=== PATIENT | female | born 1935 | race Caucasian/White ===

== ENCOUNTER 2020-05-22 02:26 | Inpatient (IN) | payer MEDICARE, OTHER ==
[~2020-05-22] VITALS: Ht 156.2 cm; Wt 83.2 kg
[2020-05-22 03:17] LABS: BASO # 0.1 x10^3/uL (0.0-0.2); BASO % 1 % (0-3); EOS # 0.1 x10^3/uL (0.0-0.7); EOS % 2 % (0-3); HEMATOCRIT 39.1 % (36.0-47.0); HEMOGLOBIN 13.3 g/dL (12.0-15.5); LYMPH # 0.7 x10^3/uL (1.0-4.8); LYMPH % 15 % (24-48); MEAN CORPUSCULAR HEMOGLOBIN 31 pg (25-35); MEAN CORPUSCULAR HGB CONC 34 g/dL (31-37); MEAN CORPUSCULAR VOLUME 92 fL (79-100); MONO # 0.5 x10^3/uL (0.0-1.1); MONO % 12 % (0-9); NEUT % 69 % (31-73); PLATELET COUNT 98 x10^3/uL (140-400); RED BLOOD COUNT 4.24 x10^6/uL (3.50-5.40); RED CELL DISTRIBUTION WIDTH 14.3 % (11.5-14.5); WHITE BLOOD COUNT 4.3 x10^3/uL (4.0-11.0)
[2020-05-22 03:24] LABS: CALCIUM 8.9 mg/dL (8.5-10.1); CREATININE 1.4 mg/dL (0.6-1.0); GFR 35.7; POTASSIUM 3.5 mmol/L (3.5-5.1)
--- NOTE | 2020-05-22 03:24 | PHYS DOC ---
Past Medical History Past Medical History: CAD, High Cholesterol, Hypertension, Hypothyroid Additional Past Medical Histor: Colon CA Past Surgical History: Appendectomy, Cancer Surgery, Hysterectomy Additional Past Surgical Histo: colon CA Smoking Status: Never Smoker Alcohol Use: None General Adult EDM: Chief Complaint: CHEST PAIN HPI: HPI: Patient is a 85 year old female with past medical history of hypertension, hyperlipidemia, hypothyroid presents with the chief complaint of left sided chest pain. Patient states pain woke her up @ 0000hrs. Pain located left chest and described as a discomfort. She states felt like indigestion. Denies any associated nausea vomiting or diaphoresis. Pain resolved shortly after arrival to ER. Review of Systems: Review of Systems: Constitutional: Denies fever or chills. [] Eyes: Denies change in visual acuity. [] HENT: Denies nasal congestion or sore throat. [] Respiratory: Denies cough or shortness of breath. [] Cardiovascular: Denies chest pain or edema. [] GI: Denies abdominal pain, nausea, vomiting, bloody stools or diarrhea. [] : Denies dysuria. [] Musculoskeletal: Denies back pain or joint pain. [] Integument: Denies rash. [] Neurologic: Denies headache, focal weakness or sensory changes. [] Endocrine: Denies polyuria or polydipsia. [] Lymphatic: Denies swollen glands. [] Psychiatric: Denies depression or anxiety. [] Heart Score: HEART Score for Chest Pain: HEART Score for Chest Pain Response (Comments) Value History Moderately Suspicious 1 ECG Nonspecific Repolarizatio 1 Age > 65 2 Risk Factors >3 Risk Factors or Hx CAD 2 Troponin < Normal Limit 0 Total 6 Risk Factors: Risk Factors: DM, Current or recent (<one month) smoker, HTN, HLP, family history of CAD, obesity. Risk Scores: Score 0 - 3: 2.5% MACE over next 6 weeks - Discharge Home Score 4 - 6: 20.3% MACE over next 6 weeks - Admit for Clinical Observation Score 7 - 10: 72.7% MACE over next 6 weeks - Early Invasive Strategies Allergies: Allergies: Allergies Coded Allergies Type Severity Reaction Last Updated Verified No Known Drug Allergies 05/22/20 No Physical Exam: PE: Constitutional: Well developed, well nourished, no acute distress, non-toxic appearance. [] HENT: Normocephalic, atraumatic, bilateral external ears normal, oropharynx moist, no oral exudates, nose normal. [] Eyes: PERRLA, EOMI, conjunctiva normal, no discharge. [] Neck: Normal range of motion, no tenderness, supple, no stridor. [] Cardiovascular:bradycardia Lungs & Thorax: Bilateral breath sounds clear to auscultation [] Abdomen: Bowel sounds normal, soft, no tenderness, no masses, no pulsatile masses. [] Skin: Warm, dry, no erythema, no rash. [] Back: No tenderness, no CVA tenderness. [] Extremities: No tenderness, no cyanosis, no clubbing, ROM intact, no edema. [] Neurologic: Alert and oriented X 3, normal motor function, normal sensory function, no focal deficits noted. [] Psychologic: Affect normal, judgement normal, mood normal. [] Current Patient Data: Vital Signs: Vital Signs Date Time Temp Pulse Resp B/P (MAP) Pulse Ox O2 Delivery O2 Flow Rate FiO2 05/22/20 02:39 97.7 56 18 140/64 (89) 96 Room Air 97.7 EKG: EKG: EKG 0230hrs rate 49 twave inversion 1, AVL V3, V4 EKG taken at 343 hours. rate 63 No discernible P wave wide QRS T wave inversion V3 V4 V5 [] Radiology/Procedures: Radiology/Procedures: [] Course & Med Decision Making: Course & Med Decision Making Pertinent Labs and Imaging studies reviewed. (See chart for details) [] Dragon Disclaimer: Dragon Disclaimer: This electronic medical record was generated, in whole or in part, using a voice recognition dictation system. Departure Departure Impression: Primary Impression: Chest pain Disposition: ADMITTED INPATIENT Condition: STABLE Referrals: TIM LANGE (PCP) Justicifation of Admission Dx: Justifications for Admission: Justification of Admission Dx: Yes CHF: Cardiac Arrhythmias Comments: Chest Pain ERWIN BERRIOS I DO May 22, 2020 03:24
[2020-05-22 03:30] LABS: ALBUMIN 3.4 g/dL (3.4-5.0); ALBUMIN/GLOBULIN RATIO 1.2 (1.0-1.7); TOTAL BILIRUBIN 0.7 mg/dL (0.2-1.0); TOTAL PROTEIN 6.3 g/dL (6.4-8.2)
--- NOTE | 2020-05-22 04:04 | EKG ---
[facility] [address] [place] [address] Test Date: 2020-05-22 Test Time: 03:43:22 Pat Name: DELIA GLEASON Department: Room: Gender: F Overnight Houseperson: : 1935 Requested By: ERWIN BERRIOS Order Number: [id number] Reading MD: Measurements Intervals [place] Rate: 63 P: MO: QRS: 120 QRSD: 70 T: 166 QT: 510 QTc: 526 Interpretive Statements IRREGULAR RHYTHM, NO P-WAVE FOUND ABNORMAL RIGHT AXIS DEVIATION LOW LIMB LEAD VOLTAGE QRS(T) CONTOUR ABNORMALITY CONSISTENT WITH ANTEROSEPTAL INFARCT AGE UNDETERMINED ST & T ABNORMALITY, CONSIDER ANTERIOR ISCHEMIA OR LEFT VENTRICULAR STRAIN LATERAL ISCHEMIA OR LEFT VENTRICULAR STRAIN ABNORMAL ECG RI6.02
[2020-05-22] MEDS ORDERED: ONDANSETRON PF 4 MG/2 ML VIAL. IV PRN (04:30)
[2020-05-22] MEDS ORDERED: MORPHINE SULFATE 2 MG/ML VIAL. IV PRN (04:30)
--- NOTE | 2020-05-22 05:10 | RAD ---
CHEST AP ONLY Clinical Indication: Reason: chest pain Comparison: None. Findings: Median sternotomy wires and changes of CABG and valve prosthesis. Atherosclerotic aortic arch. Cardiac size is upper limits of normal. Lungs are clear. There is no pneumothorax. No pleural effusion is appreciated. No acute bone abnormality. IMPRESSION: No acute cardiopulmonary process. Electronically signed by: Mike Abraham MD (05/22/2020 5:06 AM) [facility] HOSPITALFlaca
[2020-05-22 05:15] VITALS: BP 139/69
--- NOTE | 2020-05-22 06:40 | NUR ---
Pt arrived to room 208 per cart, pt assisted to bed , call light placed in reach poc explained assessment completed vss pt denied chest pain during this time will resume care and continue to monitor pt.
[2020-05-22 07:00] VITALS: BP 137/74
--- NOTE | 2020-05-22 09:07 | PDOC2 ---
PALLAVI HU EMPLOYMENT AND CLAIMS AIDE 05/22/20 0906: CARDIAC CONSULT DATE OF CONSULT Date of Consult DATE: 05/22/20 TIME: 08:57 REASON FOR CONSULT Reason for Consult: Chest pain REFERRING PHYSICIAN Referring Physician: Nancy SOURCE Source: Chart review, Patient HISTORY OF PRESENT ILLNESS HISTORY OF PRESENT ILLNESS This is a pleasant 85 yo female admitted for complains of chest pain. Reports that this is around her left breast area and felt like pressure last night and approximately lasted for about 2 hours and actually resolved upon admission in ED and no further recurrence. Reports 5-7 in 0-10 scale nonradiating and hard for her to belch. No complains of SOA, diaphoresis but felt some palpitations. She did not check her HR at that time. No complains of SERRANO and no further chest pain. Denies any changes to her functional capacity. She sees an outpt carbon furnace operator and she could not remember who but the daughter mentioned Dr. Childers but not sure and does not known where his office is at. She has alzheimers dementia but appears that her cognitive function is at an early phase. Her last stress test that she can remember was 2017 and had mechanical AVR in 1995 but no coronary bypass that she could remember. No complains of frequent falls, passing out or sustained dizziness. PAST MEDICAL HISTORY Cardiovascular: HTN, Hyperlipidemia, Valve insufficiency CENTRAL NERVOUS SYSTEM: Dementia (alzheimers) Heme/Onc: Cancer (colon) Psych: Depression Musculoskeletal: Osteoarthritis Endocrine: Hypothyroidism PAST SURGICAL HISTORY Past Surgical History: Hysterectomy, Other (open AVR) FAMILY HISTORY Family History: Heart Disease SOCIAL HISTORY Smoke: Quit (remotely) ALCOHOL: none Drugs: None Lives: with Family (daughter) ALLERGIES ALLERGIES: Coded Allergies: No Known Drug Allergies (Unverified , 05/22/20) ROS Review of System 14 point ROS evaluated with pertinent positives noted per HPI PHYSICAL EXAM General: Alert, Oriented X3, Cooperative, No acute distress HEENT: Atraumatic, Mucous membr. moist/pink Lungs: Clear to auscultation, Normal air movement Heart: Regular rate, Normal S1, Normal S2 Abdomen: Soft, No tenderness Extremities: No cyanosis, Other (trace LE) Skin: No breakdown, No significant lesion Neuro: Normal speech, Sensation intact Psych/Mental Status: Mental status NL, Mood NL MUSCULOSKELETAL: Osteoarthritic changes both hands VITALS/I&O VITALS/I&O: Vital Signs Date Time Temp Pulse Resp B/P (MAP) Pulse Ox O2 Delivery O2 Flow Rate FiO2 05/22/20 07:00 97.8 53 20 137/74 (95) 100 Room Air 97.8 I & O 05/21/20 05/21/20 05/22/20 15:00 23:00 07:00 Intake Total 0 ml Balance 0 ml LABS Lab: Laboratory Tests Test 05/22/20 03:07 05/22/20 08:05 White Blood Count 4.3 x10^3/uL (4.0-11.0) Red Blood Count 4.24 x10^6/uL (3.50-5.40) Hemoglobin 13.3 g/dL (12.0-15.5) Hematocrit 39.1 % (36.0-47.0) Mean Corpuscular Volume 92 fL (79-100) Mean Corpuscular Hemoglobin 31 pg (25-35) Mean Corpuscular Hemoglobin Concent 34 g/dL (31-37) Red Cell Distribution Width 14.3 % (11.5-14.5) Platelet Count 98 x10^3/uL (140-400) L Neutrophils (%) (Auto) 69 % (31-73) Lymphocytes (%) (Auto) 15 % (24-48) L Monocytes (%) (Auto) 12 % (0-9) H Eosinophils (%) (Auto) 2 % (0-3) Basophils (%) (Auto) 1 % (0-3) Neutrophils # (Auto) 3.0 x10^3/uL (1.8-7.7) Lymphocytes # (Auto) 0.7 x10^3/uL (1.0-4.8) L Monocytes # (Auto) 0.5 x10^3/uL (0.0-1.1) Eosinophils # (Auto) 0.1 x10^3/uL (0.0-0.7) Basophils # (Auto) 0.1 x10^3/uL (0.0-0.2) Sodium Level 145 mmol/L (136-145) Potassium Level 3.5 mmol/L (3.5-5.1) Chloride Level 109 mmol/L (98-107) H Carbon Dioxide Level 25 mmol/L (21-32) Anion Gap 11 (6-14) Blood Urea Nitrogen 19 mg/dL (7-20) Creatinine 1.4 mg/dL (0.6-1.0) H Estimated GFR (Cockcroft-Gault) 35.7 BUN/Creatinine Ratio 14 (6-20) Glucose Level 108 mg/dL (70-99) H Calcium Level 8.9 mg/dL (8.5-10.1) Total Bilirubin 0.7 mg/dL (0.2-1.0) Aspartate Amino Transferase (AST) 17 U/L (15-37) Alanine Aminotransferase (ALT) 16 U/L (14-59) Alkaline Phosphatase 68 U/L (46-116) Troponin I Quantitative 0.028 ng/mL (0.000-0.055) 0.052 ng/mL (0.000-0.055) Total Protein 6.3 g/dL (6.4-8.2) L Albumin 3.4 g/dL (3.4-5.0) Albumin/Globulin Ratio 1.2 (1.0-1.7) Laboratory Tests 05/22/20 03:07 Laboratory Tests 05/22/20 03:07 ASSESSMENT/PLAN ASSESSMENT/PLAN 1. Atypical chest pain: abnormal EKG no prior for comparison. Suspect MSK. this is reproducible to her left chest 2. Open AVR: no reported coronary bypass 3. Chronic warfarin therapy: INR at 3 4. Alzheimers dementia 5. Prolonged QTc: 544 6. HTN: controlled 7. HLP 8. Thrombocytopenia: PLT at 98. per PCP 9. Asymptomatic SB with RBBB/long first degree AV block: no syncope/presynco pe/pauses or high grad block. Lowest upper 40s Recommendations TTE Continue Coumadin with INR 2-3 goal Given her her significant cardiac risk factors and cardiac hx, would consider for outpt stress test. Follow up with her primary outpt carbon furnace operator. Continue with current regimen. I do not recommend continuing the aricept. Caution with QT prolonging agents. If palpitations continues to occur the MCOT would be ideal. MILANA MACIAS MD 05/23/20 0905: CARDIAC CONSULT ASSESSMENT/PLAN ASSESSMENT/PLAN Patient seen and examined 05/22/20. Agree with PRINCIPAL CLERK's assessment and plan. Chest pain with atypical features, reproducible to palpation most probably musculoskeletal. Myocardial infarction has been ruled out. 2D echo showed normal LV systolic function. Mechanical AVR, seems to be functioning well on echo. Continue Coumadin. Agree with holding Aricept secondary to prolonged QTc interval. Plan outpatient ischemic evaluation with primary carbon furnace operator. PALLAVI HU APRN May 22, 2020 09:06 MILANA MACIAS MD May 23, 2020 09:05
--- NOTE | 2020-05-22 09:27 | EKG ---
[facility] [address] [place] [address] Test Date: 2020-05-22 Test Time: 09:22:46 Pat Name: DELIA GLEASON Department: Room: 208 1 Gender: F Excellence Manager: RISHABH : 1935 Requested By: PALLAVI HU Order Number: [id number] Reading MD: Measurements Intervals [place] Rate: 51 P: -69 OK: 228 QRS: 120 QRSD: 126 T: 165 QT: 588 QTc: 544 Interpretive Statements SINUS RHYTHM PROLONGED OK INTERVAL ABNORMAL RIGHT AXIS DEVIATION RIGHT BUNDLE BRANCH BLOCK RVH WITH REPOLARIZATION ABNORMALITY ABNORMAL ECG RI6.02 Compared to ECG 05/22/2020 03:43:22 First degree AV block now present Right bundle-branch block now present Right ventricular hypertrophy now present Early repolarization now present Myocardial infarct finding no longer present T-wave abnormality no longer present Possible ischemia no longer present
--- NOTE | 2020-05-22 09:40 | PDOC1 ---
History and Physical Date of Admission Date of Admission 05/22/2020 Identification/Chief Complaint Chief Complaint My chest hurts Source Source: Chart review, Patient History of Present Illness History of Present Illness Patient is an 85-year-old female with past medical history of aortic valve replacement on chronic Coumadin therapy who was in her usual state of health until yesterday evening when apparently for dinner she had taquitos. Patient woke up in the middle of the night approximately midnight with what she felt was either a heart attack or heartburn. She described the discomfort as sharp sensation over the precordial area with no radiation to the carotids the arm or the jaw. The patient denied any sensation of impending doom no nausea vomiting or diaphoresis was associated with the discomfort. The patient has not had recent angina type of symptoms she does not remember last time that she saw her creative developer but overall she said that her creative developer inform her she was doing quite well. The patient has not had any changes to her current therapies and is hoping to be going home later in the day. She feels well and there is no EKG abnormalities noted on telemetry. Reassurance is provided plan of care explained in detail Past Medical History Cardiovascular: HTN, Hyperlipidemia CENTRAL NERVOUS SYSTEM: Dementia (alzheimers) Heme/Onc: Cancer (colon) Psych: Depression Endocrine: Hypothyroidism Past Surgical History Past Surgical History: Hysterectomy Current Problem List Problem List Problems Medical Problems: (1) Chest pain Status: Acute Current Medications Current Medications Current Medications Medications (Trade) Dose Ordered Sig/Roxy Start Time Stop Time Status Last Admin Dose Admin Morphine Sulfate (Morphine Sulfate) 2 mg PRN Q2HR PRN 05/22/20 04:30 05/23/20 04:29 Ondansetron HCl (Zofran) 4 mg PRN Q8HRS PRN 05/22/20 04:30 05/23/20 04:29 Allergies Allergies Allergies Coded Allergies Type Severity Reaction Last Updated Verified No Known Drug Allergies 05/22/20 No ROS Review of System CONSTITUTIONAL: No fever or chills EYES: No recent changes SKIN: No rash or itching CARDIOVASCULAR: No chest pain, syncope, palpitations, or edema RESPIRATORY: No SOB or cough GASTROINTESTINAL: No nausea, vomiting or abdominal pain NEUROLOGICAL: No headaches or weakness ENDOCRINE: No cold or heat intolerance GENITOURINARY: No urgency or frequency of urination MUSCULOSKELETAL: No back pain or joint pain LYMPHATICS: No enlarged lymph nodes PSYCHIATRIC: No anxiety or depression Physical Exam Physical Exam GEN.: No apparent distress. Alert and oriented. HEENT: Head is normocephalic, atraumatic NECK: Supple. LUNGS: Clear to auscultation. HEART: RRR, S1, S2 present. Audible click peripheral pulses intact ABDOMEN: Soft, nontender. Positive bowel sounds. EXTREMITIES: Without any cyanosis. NEUROLOGIC: Normal speech, normal tone PSYCHIATRIC: Normal affect, normal mood. SKIN: No ulcerations Vitals Vitals Vital Signs Date Time Temp Pulse Resp B/P (MAP) Pulse Ox O2 Delivery O2 Flow Rate FiO2 05/22/20 07:00 97.8 53 20 137/74 (95) 100 Room Air 97.8 Labs Labs Laboratory Tests Test 05/22/20 03:07 05/22/20 08:05 White Blood Count 4.3 x10^3/uL (4.0-11.0) Red Blood Count 4.24 x10^6/uL (3.50-5.40) Hemoglobin 13.3 g/dL (12.0-15.5) Hematocrit 39.1 % (36.0-47.0) Mean Corpuscular Volume 92 fL (79-100) Mean Corpuscular Hemoglobin 31 pg (25-35) Mean Corpuscular Hemoglobin Concent 34 g/dL (31-37) Red Cell Distribution Width 14.3 % (11.5-14.5) Platelet Count 98 x10^3/uL (140-400) Neutrophils (%) (Auto) 69 % (31-73) Lymphocytes (%) (Auto) 15 % (24-48) Monocytes (%) (Auto) 12 % (0-9) Eosinophils (%) (Auto) 2 % (0-3) Basophils (%) (Auto) 1 % (0-3) Neutrophils # (Auto) 3.0 x10^3/uL (1.8-7.7) Lymphocytes # (Auto) 0.7 x10^3/uL (1.0-4.8) Monocytes # (Auto) 0.5 x10^3/uL (0.0-1.1) Eosinophils # (Auto) 0.1 x10^3/uL (0.0-0.7) Basophils # (Auto) 0.1 x10^3/uL (0.0-0.2) Sodium Level 145 mmol/L (136-145) Potassium Level 3.5 mmol/L (3.5-5.1) Chloride Level 109 mmol/L (98-107) Carbon Dioxide Level 25 mmol/L (21-32) Anion Gap 11 (6-14) Blood Urea Nitrogen 19 mg/dL (7-20) Creatinine 1.4 mg/dL (0.6-1.0) Estimated GFR (Cockcroft-Gault) 35.7 BUN/Creatinine Ratio 14 (6-20) Glucose Level 108 mg/dL (70-99) Calcium Level 8.9 mg/dL (8.5-10.1) Total Bilirubin 0.7 mg/dL (0.2-1.0) Aspartate Amino Transf (AST/SGOT) 17 U/L (15-37) Alanine Aminotransferase (ALT/SGPT) 16 U/L (14-59) Alkaline Phosphatase 68 U/L (46-116) Troponin I Quantitative 0.028 ng/mL (0.000-0.055) 0.052 ng/mL (0.000-0.055) Total Protein 6.3 g/dL (6.4-8.2) Albumin 3.4 g/dL (3.4-5.0) Albumin/Globulin Ratio 1.2 (1.0-1.7) Thyroid Stimulating Hormone (TSH) 2.187 uIU/mL (0.358-3.74) Laboratory Tests Test 05/22/20 03:07 05/22/20 08:05 White Blood Count 4.3 x10^3/uL (4.0-11.0) Red Blood Count 4.24 x10^6/uL (3.50-5.40) Hemoglobin 13.3 g/dL (12.0-15.5) Hematocrit 39.1 % (36.0-47.0) Mean Corpuscular Volume 92 fL (79-100) Mean Corpuscular Hemoglobin 31 pg (25-35) Mean Corpuscular Hemoglobin Concent 34 g/dL (31-37) Red Cell Distribution Width 14.3 % (11.5-14.5) Platelet Count 98 x10^3/uL (140-400) Neutrophils (%) (Auto) 69 % (31-73) Lymphocytes (%) (Auto) 15 % (24-48) Monocytes (%) (Auto) 12 % (0-9) Eosinophils (%) (Auto) 2 % (0-3) Basophils (%) (Auto) 1 % (0-3) Neutrophils # (Auto) 3.0 x10^3/uL (1.8-7.7) Lymphocytes # (Auto) 0.7 x10^3/uL (1.0-4.8) Monocytes # (Auto) 0.5 x10^3/uL (0.0-1.1) Eosinophils # (Auto) 0.1 x10^3/uL (0.0-0.7) Basophils # (Auto) 0.1 x10^3/uL (0.0-0.2) Sodium Level 145 mmol/L (136-145) Potassium Level 3.5 mmol/L (3.5-5.1) Chloride Level 109 mmol/L (98-107) Carbon Dioxide Level 25 mmol/L (21-32) Anion Gap 11 (6-14) Blood Urea Nitrogen 19 mg/dL (7-20) Creatinine 1.4 mg/dL (0.6-1.0) Estimated GFR (Cockcroft-Gault) 35.7 BUN/Creatinine Ratio 14 (6-20) Glucose Level 108 mg/dL (70-99) Calcium Level 8.9 mg/dL (8.5-10.1) Total Bilirubin 0.7 mg/dL (0.2-1.0) Aspartate Amino Transf (AST/SGOT) 17 U/L (15-37) Alanine Aminotransferase (ALT/SGPT) 16 U/L (14-59) Alkaline Phosphatase 68 U/L (46-116) Troponin I Quantitative 0.028 ng/mL (0.000-0.055) 0.052 ng/mL (0.000-0.055) Total Protein 6.3 g/dL (6.4-8.2) Albumin 3.4 g/dL (3.4-5.0) Albumin/Globulin Ratio 1.2 (1.0-1.7) Thyroid Stimulating Hormone (TSH) 2.187 uIU/mL (0.358-3.74) VTE Prophylaxis Ordered VTE Prophylaxis Devices: No VTE Pharmacological Prophylaxi: Yes Assessment/Plan Assessment/Plan Chest pain rule out ACS History of aortic valve replacement, mechanical Chronic Coumadin therapy Essential hypertension Dyslipidemia Chronic kidney disease stage II Thrombocytopenia Plan Follow trend of troponin Cardiology consultation has been requested Check PT/INR Further recommendations based on the clinical course Resume home medication Hopefully discharge later if no further intervention deemed necessary from the cardiological standpoint of view DVT prophylaxis patient is on full anticoagulation with Coumadin Justifications for Admission Other Justification ALEKSANDRA MENDEZ MD May 22, 2020 09:40
[2020-05-22 09:50] LABS: PROTHROMBIN TIME PATIENT 31.6 SEC (11.7-14.0)
[2020-05-22 10:17] LABS: CHOLESTEROL/HDL RATIO 2.6
[2020-05-22] MEDS ORDERED: MEMA10TA PO (10:19)
[2020-05-22] MEDS ORDERED: ATOR40TA59 PO (10:19)
[2020-05-22] MEDS ORDERED: WARF7.5T45 PO (10:19)
[2020-05-22] MEDS ORDERED: TELM40TA PO (10:19)
[2020-05-22] MEDS ORDERED: FEXO180T16 PO (10:19)
[2020-05-22] MEDS ORDERED: AMLO5TAB10 PO (10:19)
[2020-05-22] MEDS ORDERED: ZOLP5TAB5 PO (10:19)
[2020-05-22] MEDS ORDERED: HYDR12.575 PO (10:19)
[2020-05-22] MEDS ORDERED: DONE10TA7 PO (10:19)
[2020-05-22] MEDS ORDERED: CETI10TA16 PO (10:19)
--- NOTE | 2020-05-22 10:43 | NUR ---
SS following for discharge planning. SS reviewed pt chart and discussed with pt RN. Pt is from home and is currently on room air. ECHO ordered. Cardiology consulted. SS will continue to follow for discharge planning.
[2020-05-22 11:00] VITALS: BP 147/79
[2020-05-22 15:00] VITALS: BP 137/77
--- NOTE | 2020-05-22 19:05 | CARD ---
MR#: [id number] Date of Study: 05/22/2020 Ordering Physician: PALLAVI HU, Referring Physician: PALLAVI HU Tech: Marleny Dyer DELILAH APPROVED REPORT EXAM: Two-dimensional and M-mode echocardiogram with Doppler and color Doppler. Other Information Quality : Good Technically limited study due to body habitus. INDICATION Chest Pain Surgery/Intervention Status/Post Aortic Valve Replacement: Mechanical Type: [place] Date: 1995 2D DIMENSIONS RVDd2.9 (2.9-3.5cm)Left Atrium(2D)3.5 (1.6-4.0cm) IVSd0.9 (0.7-1.1cm)Aortic Root(2D)2.9 (2.0-3.7cm) LVDd4.3 (3.9-5.9cm)LVOT Diameter1.7 (1.8-2.4cm) PWd1.2 (0.7-1.1cm)LVDs2.9 (2.5-4.0cm) FS (%) 31.6 %SV48.8 ml LVEF(%)59.9 (>50%) Aortic Valve AoV Peak Cali.233.1cm/sAoV VTI45.9cm AO Peak GR.21.7mmHgLVOT VTI 22.68cm AO Mean GR.12mmHgAVA (VTI)1.18cm2 Mitral Valve MV E Inxqpqta22.4cm/sMV DECEL [id number] MV A Vzdvniez698.8cm/sE/A Ratio0.8 TDI Lateral E' P. V6.18cm/sMedial E' P. V5.79cm/s E/Lateral E'15.6E/Medial E'16.6 Tricuspid Valve TR P. Hkymubfk754yb/sRAP [id number] TR Peak Gr.75ojQkFQLN15kkYk Pulmonary Vein S1 Daiiqyzd88.9cm/sS2 Zfshabxc45.80cm/s D2 Qtqsrmdg27.8cm/s LEFT VENTRICLE The left ventricle is normal size. There is mild concentric left ventricular hypertrophy. The left ve ntricular systolic function is normal and the ejection fraction is within normal range. The Ejection Fraction is 55-60%. Septal motion consistent with post-operative state. Otherwise, grossly normal wal l motion. RIGHT VENTRICLE The right ventricle is normal size. The right ventricular systolic function is normal. ATRIA The left atrium size is normal. The right atrium size is normal. The interatrial septum is intact wit h no evidence for an atrial septal defect or patent foramen ovale as noted on 2-D or Doppler imaging. AORTIC VALVE Doppler and Color Flow revealed no significant aortic regurgitation. Calculated aortic valve area is 1.18 cm2 with maximum pressure gradient of 22 mmHg and mean pressure gradient of 12 mmHg. There is a mechanical aortic valve prosthesis. Not well visualized. MITRAL VALVE Mitral annular calcification is mild to moderate. The mitral valve is calcified but opens well. There is no evidence of mitral valve prolapse. There is no mitral valve stenosis. Doppler and Color Flow r evealed no mitral valve regurgitation noted. TRICUSPID VALVE The tricuspid valve is normal in structure and function. Doppler and Color Flow revealed trace tricus pid regurgitation. The PA pressure was estimated at 28 mmHg. There is no tricuspid valve stenosis. PULMONIC VALVE The pulmonic valve is not well visualized. Doppler and Color Flow revealed trace to mild pulmonic joe vular regurgitation. There is no pulmonic valvular stenosis. GREAT VESSELS The aortic root is normal in size. 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 The IVC is normal in size and collapses >50% with inspiration. PERICARDIAL EFFUSION There is no evidence of significant pericardial effusion. Critical Notification Critical Value: No <Conclusion> There is mild concentric left ventricular hypertrophy. The left ventricular systolic function is normal and the ejection fraction is within normal range. Th e Ejection Fraction is 55-60%. Septal motion consistent with post-operative state. Otherwise, grossly normal wall motion. There is a mechanical aortic valve prosthesis. Not well visualized. Calculated aortic valve area is 1.18 cm2 with maximum pressure gradient of 22 mmHg and mean pressure gradient of 12 mmHg. 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 Signed by : Reid Malloy, Electronically Approved : 05/22/2020 19:04:17
[2020-05-22] MEDS ORDERED: ZOLPIDEM 5 MG TABLET. PO PRN (19:45)
[2020-05-22 19:49] VITALS: BP 119/70
[2020-05-22] MEDS ORDERED: ATORVASTATIN CALCIUM 40 MG TABLET. PO SCH (21:00)
[2020-05-22] MEDS ORDERED: WARFARIN 7.5 MG TABLET. PO ONE (21:00)
[2020-05-22 22:06] VITALS: BP 108/68
--- NOTE | 2020-05-22 23:54 | EKG ---
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: : 1935 Requested By: ALEKSANDRA MENDEZ Order Number: [id number] Reading MD: Measurements Intervals [place] Rate: 74 P: -47 NE: 208 QRS: 132 QRSD: 78 T: 28 QT: 448 QTc: 498 Interpretive Statements SINUS RHYTHM LOW LIMB LEAD VOLTAGE T ABNORMALITY IN ANTERIOR LEADS PROLONGED QT ABNORMAL ECG RI6.01 Compared to ECG 05/22/2020 09:22:46 T-wave abnormality now present Prolonged QT interval now present First degree AV block no longer present Right-axis deviation no longer present Right bundle-branch block no longer present Right ventricular hypertrophy no longer present Early repolarization no longer present
[2020-05-23 02:11] VITALS: BP 131/67
[2020-05-23 05:36] LABS: PROTHROMBIN TIME PATIENT 23.6 SEC (11.7-14.0)
[2020-05-23] MEDS ORDERED: ACETAMINOPHEN 325 MG TABLET. PO PRN (06:00)
[2020-05-23 07:00] VITALS: BP 138/77
[2020-05-23] MEDS ORDERED: hydroCHLOROthiazide 12.5 MG CAPSULE PO SCH (09:00)
[2020-05-23] MEDS ORDERED: CETIRIZINE HCL 10 MG TABLET. PO SCH (09:00)
[2020-05-23] MEDS ORDERED: MEMANTINE 10 MG TABLET. PO SCH (09:00)
[2020-05-23] MEDS ORDERED: amLODIPine BESYLATE 5 MG TABLET PO SCH (09:00)
[2020-05-23] MEDS ORDERED: NON FORMULARY ITEM (Fexofenadine Hcl 180 MG) PO SCH (09:00)
[2020-05-23] MEDS ORDERED: LOSARTAN POTASSIUM 50 MG TABLET. PO SCH (09:00)
[2020-05-23 11:00] VITALS: BP 110/66
--- NOTE | 2020-05-23 12:31 | PDOC ---
PALLAVI HU BAND SEWER 05/23/20 1231: CARDIO Progress Notes Date and Time Date of Service 05/23/2020 Time of Evaluation 1240 Subjective Subjective: No Chest Pain, No shortness of breath, No Palpitations Vitals Vitals Vital Signs Date Time Temp Pulse Resp B/P (MAP) Pulse Ox O2 Delivery O2 Flow Rate FiO2 05/23/20 11:00 98.5 54 20 110/66 (81) 95 Nasal Cannula 2.0 98.5 Weight Weight [ ] Input and Output Intake and Output Intake and Output 05/23/20 07:00 Intake Total 450 ml Output Total 300 ml Balance 150 ml Intake Oral 450 ml Output Urine Total 300 ml # Voids 1 Laboratory Labs Laboratory Tests Test 05/23/20 04:00 Prothrombin Time 23.6 SEC (11.7-14.0) Prothromb Time International Ratio 2.1 (0.8-1.1) Physical Exam HEENT: Neck Supple W Full Motion Chest: Symmetric LUNGS: Clear to Auscultation Heart: S1S2, RRR (SR) Abdomen: Soft N/T Extremities: No Edema, No Calf Tenderness Neurology: alert, oriented, follow commands Assessment Assessment 1. Atypical chest pain: abnormal EKG no prior for comparison. Suspect MSK. this is reproducible to her left chest 2. Open AVR: no reported coronary bypass. EF is nml with 1.18 cm2 with maximum pressure gradient of 22 mmHg and mean pressure gradient of 12 mmHg 3. Chronic warfarin therapy: INR at 2.1 4. Alzheimers dementia 5. Prolonged QTc::from 544 to 488 6. HTN: controlled 7. HLP 8. Thrombocytopenia: PLT at 98. per PCP 9. Asymptomatic SB with RBBB/long first degree AV block: no syncope/presyncope/pauses or high grad block. Lowest upper 40s Recommendations Continue Coumadin with INR 2-3 goal Given her her significant cardiac risk factors and cardiac hx, would consider fo r outpt stress test. Follow up with her primary outpt sales/marketing. Continue with current regimen. DC aricept. Caution with QT prolonging agents. If palpitations or symptoms of bradycardia is occur then MCOT would be ideal. Discussed with Daughter as well with notation above, pt is to follow up with Dr. Bravo her sales/marketing Justicifation of Admission Dx: Justifications for Admission: Justification of Admission Dx: Yes CHF: Cardiac Arrhythmias PASNOORI,MILANA R MD 05/23/201946: CARDIO Progress Notes Assessment Assessment Patient seen and examined. Agree with LEARNING COORDINATOR's assessment and plan. Chest pain with atypical features, reproducible to palpation most probably musculoskeletal. Myocardial infarction has been ruled out. 2D echo showed normal LV systolic function. Mechanical AVR, seems to be functioning well on echo. Continue Coumadin. Plan outpatient ischemic evaluation with primary card iologist. PALLAVI HU APRN May 23, 2020 12:31 MILANA MACIAS MD May 23, 2020 19:47
--- NOTE | 2020-05-23 12:47 | NUR ---
Pharmacy Warfarin Dosing Note S: Pharmacy consulted to assist with anticoagulation therapy O: DELIA GLEASON is a 85 year old F with Mechanical Aortic Valve LABS: Last INR: 2.1 Last HGB: 13.3 Last HCT: 39.1 Last PLT: 98 Last dose of 7.5 mg given on 05/22/20 at 2001 A:INR of 2.1 is within desired range. Target range for this patient is: 2 -3 P: Warfarin dose: 7.5 mg Today at 1600 Bridge Therapy: None Next INR due tomorrow Pharmacy anticoagulation service will continue to follow. Rima Cesar RPH, 05/23/20 0680
--- NOTE | 2020-05-23 14:05 | NUR ---
Discharge Note: JOHN GLEASON Discharge instructions and discharge home medications reviewed with Patient and a copy given. All questions have been answered and understanding verbalized. The following instructions and handouts were given: discharge instructions, CP info, heart rhythm & rate info, follow ups. Discontinued lines and drains: Peripheral IV intact. Patient discharged to Home or Self Care with Family Member via Wheelchair at 1405.
[2020-05-23] MEDS ORDERED: WARFARIN 7.5 MG TABLET. PO ONE (16:00)
--- NOTE | 2020-05-23 18:07 | PDOC3 ---
Discharge Summary Visit Information Date of Admission: May 22, 2020 Date of Discharge: May 23, 2020 Admitting Diagnosis Comment: Assessment/Plan Chest pain rule out ACS History of aortic valve replacement, mechanical Chronic Coumadin therapy Essential hypertension Dyslipidemia Chronic kidney disease stage II Thrombocytopenia Final Diagnosis Problems Medical Problems: (1) Chest pain acs ruled out Status: Acute History of aortic valve replacement, mechanical Chronic Coumadin therapy Essential hypertension Dyslipidemia Chronic kidney disease stage II Thrombocytopenia Brief Hospital Course Allergies Allergies Coded Allergies Type Severity Reaction Last Updated Verified No Known Drug Allergies 05/22/20 No Vital Signs Vital Signs Date Time Temp Pulse Resp B/P (MAP) Pulse Ox O2 Delivery O2 Flow Rate FiO2 05/23/20 11:00 98.5 54 20 110/66 (81) 95 Nasal Cannula 2.0 98.5 Lab Results Laboratory Tests Test 05/22/20 03:07 05/22/20 08:05 05/22/20 11:20 05/23/20 04:00 White Blood Count 4.3 x10^3/uL (4.0-11.0) Red Blood Count 4.24 x10^6/uL (3.50-5.40) Hemoglobin 13.3 g/dL (12.0-15.5) Hematocrit 39.1 % (36.0-47.0) Mean Corpuscular Volume 92 fL (79-100) Mean Corpuscular Hemoglobin 31 pg (25-35) Mean Corpuscular Hemoglobin Concent 34 g/dL (31-37) Red Cell Distribution Width 14.3 % (11.5-14.5) Platelet Count 98 x10^3/uL (140-400) Neutrophils (%) (Auto) 69 % (31-73) Lymphocytes (%) (Auto) 15 % (24-48) Monocytes (%) (Auto) 12 % (0-9) Eosinophils (%) (Auto) 2 % (0-3) Basophils (%) (Auto) 1 % (0-3) Neutrophils # (Auto) 3.0 x10^3/uL (1.8-7.7) Lymphocytes # (Auto) 0.7 x10^3/uL (1.0-4.8) Monocytes # (Auto) 0.5 x10^3/uL (0.0-1.1) Eosinophils # (Auto) 0.1 x10^3/uL (0.0-0.7) Basophils # (Auto) 0.1 x10^3/uL (0.0-0.2) Prothrombin Time 31.6 SEC (11.7-14.0) 23.6 SEC (11.7-14.0) Prothromb Time International Ratio 3.0 (0.8-1.1) 2.1 (0.8-1.1) Sodium Level 145 mmol/L (136-145) Potassium Level 3.5 mmol/L (3.5-5.1) Chloride Level 109 mmol/L (98-107) Carbon Dioxide Level 25 mmol/L (21-32) Anion Gap 11 (6-14) Blood Urea Nitrogen 19 mg/dL (7-20) Creatinine 1.4 mg/dL (0.6-1.0) Estimated GFR (Cockcroft-Gault) 35.7 BUN/Creatinine Ratio 14 (6-20) Glucose Level 108 mg/dL (70-99) Calcium Level 8.9 mg/dL (8.5-10.1) Total Bilirubin 0.7 mg/dL (0.2-1.0) Aspartate Amino Transf (AST/SGOT) 17 U/L (15-37) Alanine Aminotransferase (ALT/SGPT) 16 U/L (14-59) Alkaline Phosphatase 68 U/L (46-116) Troponin I Quantitative 0.028 ng/mL (0.000-0.055) 0.052 ng/mL (0.000-0.055) 0.028 ng/mL (0.000-0.055) Total Protein 6.3 g/dL (6.4-8.2) Albumin 3.4 g/dL (3.4-5.0) Albumin/Globulin Ratio 1.2 (1.0-1.7) Triglycerides Level 151 mg/dL (0-150) Cholesterol Level 126 mg/dL (0-200) LDL Cholesterol, Calculated 47 mg/dL (0-100) VLDL Cholesterol, Calculated 30 mg/dL (0-40) Non-HDL Cholesterol Calculated 77 mg/dL (0-129) HDL Cholesterol 49 mg/dL (40-60) Cholesterol/HDL Ratio 2.6 Thyroid Stimulating Hormone (TSH) 2.187 uIU/mL (0.358-3.74) Laboratory Tests Test 05/23/20 04:00 Prothrombin Time 23.6 SEC (11.7-14.0) Prothromb Time International Ratio 2.1 (0.8-1.1) Brief Hospital Course History of Present Illness Patient is an 85-year-old female with past medical history of aortic valve replacement on chronic Coumadin therapy who was in her usual state of health until yesterday evening when apparently for dinner she had taquitos. Patient woke up in the middle of the night approximately midnight with what she felt was either a heart attack or heartburn. She described the discomfort as sharp sensation over the precordial area with no radiation to the carotids the arm or the jaw. The patient denied any sensation of impending doom no nausea vomiting or diaphoresis was associated with the discomfort. The patient has not had recent angina type of symptoms she does not remember last time that she saw her flow manager but overall she said that her flow manager inform her she was doing quite well. The patient has not had any changes to her current therapies and is hoping to be going home later in the day. She feels well and there is no EKG abnormalities noted on telemetry. Reassurance is provided plan of care explained in detail Patient had an unventful hosptial stay 3 sets of cardiac enxymes were negative and an ECHO did not reveal concerning changes. She was evaluated by our surgical product sales consultant and deeemed appropriate for discharge, no changes to her medications. Reassurance provided. Assessment Assessment Echocardiogram <Conclusion> There is mild concentric left ventricular hypertrophy. The left ventricular systolic function is normal and the ejection fraction is within normal range. The Ejection Fraction is 55-60%. Septal motion consistent with post-operative state. Otherwise, grossly normal wall motion. There is a mechanical aortic valve prosthesis. Not well visualized. Calculated aortic valve area is 1.18 cm2 with maximum pressure gradient of 22 mmHg and mean pressure gradient of 12 mmHg. 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 Signed by : Reid Malloy, Electronically Approved : 05/22/2020 19:04:17 Discharge Information Condition at Discharge: Improved Follow Up: Weeks Disposition/Orders: D/C to Home Scheduled Amlodipine Besylate (Amlodipine Besylate) 5 Mg Tablet, 5 MG PO DAILY for hypertension, (Reported) Entered as Reported by: ANNIE PAUL RN on 9/91018 Last Taken: Unknown Dose on 05/22/20 Last Action: Continued on 05/22/201937 by ANNIE PAUL RN Atorvastatin Calcium (Atorvastatin Calcium) 40 Mg Tablet, 40 MG PO HS for FOR CHOLESTEROL, #30 Ref 0 (Reported) Entered as Reported by: ANNIE PAUL RN on 05/22/201018 Last Taken: Unknown Dose on 05/22/20 Last Action: Continued on 05/22/201937 by ANNIE PAUL RN Cetirizine Hcl (Cetirizine Hcl) 10 Mg Tablet, 1 TAB PO DAILY for Alllergies, #30 Ref 2 (Reported) Entered as Reported by: ANNIE PAUL RN on 05/22/201018 Last Taken: Unknown Dose on 05/22/20 Last Action: Continued on 05/22/201937 by ANNIE PAUL RN Fexofenadine Hcl (Fexofenadine Hcl) 180 Mg Tablet, 180 MG PO DAILY for Skin rash, (Reported) Entered as Reported by: ANNIE PAUL RN on 05/22/201018 Last Taken: Unknown Dose on 05/22/20 Last Action: Converted on 05/22/201937 by ANNIE PAUL RN Hydrochlorothiazide (Hydrochlorothiazide Capsule ) 12.5 Mg Capsule, 12.5 MG PO DAILY for DIURETIC, Ref 0 (Reported) Entered as Reported by: ANNIE PAUL RN on 05/22/201018 Last Taken: Unknown Dose on 05/22/20 Last Action: Continued on 05/22/201937 by ANNIE PAUL RN Memantine Hcl (Namenda) 10 Mg Tablet, 10 MG PO DAILY for Dementia, (Reported) Entered as Reported by: ANNIE PAUL RN on 05/22/201018 Last Taken: Unknown Dose on 05/22/20 Last Action: Continued on 05/22/201937 by ANNIE PAUL RN Telmisartan (Micardis) 40 Mg Tablet, 1 TAB PO DAILY for hypertension, #30 Ref 5 (Reported) Entered as Reported by: ANNIE PAUL RN on 05/22/201018 Last Taken: Unknown Dose on 05/22/20 Last Action: Converted on 05/22/201937 by ANNIE PAUL RN Warfarin Sodium (Warfarin Sodium) 7.5 Mg Tablet, 7 MG PO DAILY for mechanical valve, (Reported) Entered as Reported by: ANNIE PAUL RN on 05/22/201018 Last Taken: Unknown Dose on 05/22/20 Last Action: New Order on 05/22/201018 by ANNIE PAUL RN Scheduled PRN Zolpidem Tartrate (Zolpidem Tartrate) 5 Mg Tablet, 10 MG PO PRN QHS PRN for INSOMNIA, Ref 0 (Reported) Entered as Reported by: ANNIE PAUL RN on 05/22/201018 Last Taken: Unknown Dose on 05/22/20 Last Action: Continued on 05/22/201937 by ANNIE PAUL RN Discontinued Medications Donepezil Hcl (Donepezil Hcl) 10 Mg Tablet, 10 MG PO HS for dementia, (Reported) Entered as Reported by: ANNIE PAUL RN on 05/22/201018 Last Taken: Unknown Dose on 05/22/20 Last Action: Discontinued on 05/22/20 1313 by ANNIE PAUL RN Justicifation of Admission Dx: Justifications for Admission: Justification of Admission Dx: Yes CHF: Cardiac Arrhythmias ALEKSANDRA MENDEZ MD May 23, 2020 18:07
== END 2020-05-23 14:05 | disposition home or self-care (01) | DRG 392 ==
LOC: ER 02:26 → 2 NORTH 03:48 → OBSVTOIN 23:12
PROVIDERS: ADMIT Internal Medicine; ATTEND Internal Medicine
DX: K21.9 Gastro-esophageal reflux disease without esophagitis (principal); D69.6 Thrombocytopenia, unspecified; E03.9 Hypothyroidism, unspecified; E78.00 Pure hypercholesterolemia, unspecified; E78.5 Hyperlipidemia, unspecified; F02.80 Dementia in other diseases classified elsewhere, unspecified severity, without behavioral disturbance, psychotic disturbance, mood disturbance, and anxiety; G30.9 Alzheimer's disease, unspecified; I13.10 Hypertensive heart and chronic kidney disease without heart failure, with stage 1 through stage 4 chronic kidney disease, or unspecified chronic kidney disease; I25.10 Atherosclerotic heart disease of native coronary artery without angina pectoris; I44.0 Atrioventricular block, first degree; I45.10 Unspecified right bundle-branch block; F32.9 Major depressive disorder, single episode, unspecified; M19.90 Unspecified osteoarthritis, unspecified site; N18.2 Chronic kidney disease, stage 2 (mild); Z79.01 Long term (current) use of anticoagulants; Z85.038 Personal history of other malignant neoplasm of large intestine; Z90.49 Acquired absence of other specified parts of digestive tract; Z90.710 Acquired absence of both cervix and uterus; Z95.2 Presence of prosthetic heart valve
CPT/HCPCS: 36415; 71045; 80053; 80061; 84443; 84484; 85025; 85610; 93005; 93306; 99285; G0378; G0379; J2270